=== PATIENT | male | born 1980 | race African-American/Black ===

== ENCOUNTER 2017-06-01 15:52 | Emergency (ER) | payer MEDICAID ==
[~2017-06-01] VITALS: Ht 167.6 cm; Wt 78.5 kg
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
--- NOTE | 2017-06-01 17:00 | NUR ---
IN AND OUT CATHER PERFORMED USING STERILE TECHNIQUE, 100CC YELLOW CLEAR URINE COLLECTED AND SENT TO LAB.
[2017-06-01 17:52] LABS: BASOPHILS % (AUTO) 0.3 % (0.0-2.0); EOSINOPHILS # (AUTO) 0.1 /CMM (0.0-0.7); EOSINOPHILS % (AUTO) 0.7 % (0.0-6.0); HEMATOCRIT 40 % (39-51); HEMOGLOBIN 13.1 g/dL (13.5-17.5); LYMPHOCYTES # (AUTO) 1.3 /CMM (0.8-4.8); LYMPHOCYTES % (AUTO) 17.3 % (20.0-44.0); MEAN CORPUSCULAR HEMOGLOBIN 29 PG (26.0-33.0); MEAN CORPUSCULAR HGB CONC 33 g/dl (31.0-36.0); MEAN CORPUSCULAR VOLUME 86 fL (80-96); MONOCYTES # (AUTO) 0.6 /CMM (0.1-1.30); MONOCYTES % (AUTO) 8.3 % (2.0-12.0); NEUTROPHILS # (AUTO) 5.6 /CMM (1.8-8.9); NEUTROPHILS % (AUTO) 73.4 % (43.0-81.0); PLATELET COUNT (AUTO) 233 /CMM (150-450); RED BLOOD CELL COUNT(AUTO) 4.57 MIL/uL (4.5-6.0); WHITE BLOOD COUNT (AUTO) 7.6 K/uL (4.3-11.0)
[2017-06-01] MEDS ORDERED: OLANZAPINE 10 MG VIAL IM ONE ×2 (18:00→18:23)
[2017-06-01 18:08] LABS: CARBON DIOXIDE 25 mmol/L (21-32); CHLORIDE 101 mmol/L (98-107); CREATININE 1.2 mg/dL (0.6-1.3); GLUCOSE 98 mg/dL (74-106); POTASSIUM 3.9 mmol/L (3.5-5.1); SODIUM SERUM 136 mmol/L (136-145); UREA NITROGEN, BLOOD 27 mg/dL (7-18)
[2017-06-01 18:13] LABS: ALANINE AMINOTRANSFERASE 54 U/L (12-78); ALBUMIN 3.8 g/dL (3.4-5.0); ALKALINE PHOSPHATASE 75 U/L (46-116); ASPARTATE AMINOTRANSFERASE 124 U/L (15-37); BILIRUBIN,DIRECT 0.2 mg/dL (0.0-0.2); BILIRUBIN,TOTAL 1.2 mg/dL (0.2-1.0); TOTAL PROTEIN, SERUM 7.7 g/dL (6.4-8.2)
[2017-06-01 18:15] LABS: ACETAMINOPHEN 0 ug/ml (10-30); ALCOHOL, BLOOD < 3 mg/dL (0-0); SALICYLATE < 0.2 mg/dL (2.8-20.0)
--- NOTE | 2017-06-01 18:23 | NUR ---
PT IS HITTING BED RAIL AND WALL AND APPEARS PIALR ANGRY. PT CONTINUES TO REFUSE QUESTIONS. PT MEDICATED ORDERED PER DR. GARDINER
--- NOTE | 2017-06-01 19:30 | NUR ---
PT RESTING COMFORTABLY. RESTRAINTS REMOVED. PULSE WNL, ABLE TO FEEL SENSATIONS
[2017-06-01 20:53] LABS: APPEARANCE,URINE Clear (CLEAR); BILIRUBIN,URINE SMALL (NEGATIVE); BLOOD, URINE Trace-intact Ery/uL (NEGATIVE); COLOR,URINE Yellow (YELLOW); KETONES,URINE 40 (NEGATIVE); LEUKOCYTE ESTERASE ,URINE Negative (NEGATIVE); NITRITE, URINE Negative (NEGATIVE); PH,URINE 5.5 (5.0-8.0); PROTEIN,URINE 30 mg/dl (NEGATIVE); UGLUCOSE Negative (NEGATIVE); UROBILINOGEN,URINE 0.2 EU/dL (0.2)
[2017-06-01 21:07] LABS: BACTERIA,URINE Few /HPF (None Seen); HYALINE CASTS, URINE Rare /LPF (None Seen); MUCUS,URINE Moderate /LPF (None Seen); SQUAMOUS EPITHELIAL CELL,UR Few /HPF (None Seen); URINE AMORPHOUS URATE Few /HPF (None Seen); WBC,URINE 0-2 /HPF (0-3)
--- NOTE | 2017-06-01 21:11 | NUR ---
Patient is resting comfortably in bed with eyes closed. Easily aroused. VSS
--- NOTE | 2017-06-01 23:17 | NUR ---
Patient is resting comfortably in bed with eyes closed. Easily aroused. VSS
--- NOTE | 2017-06-02 00:12 | NUR ---
CALLED [facility] FOR EVAL. MAN
--- NOTE | 2017-06-02 00:30 | NUR ---
PT HAS UNSTEADY GAIT. PLACED MEDICAL RESTRAINTS TO PREVENT FALL. WILL CONTINUE TO MONITOR NEEDS FOR RESTRAINTS
--- NOTE | 2017-06-02 00:59 | NUR ---
ART AT BEDSIDE
--- NOTE | 2017-06-02 01:01 | NUR ---
ART LEFT. "I CANT EVALUATE HIM BECAUSE HE IS TOO OUT OF IT". WILL F/U
--- NOTE | 2017-06-02 01:15 | NUR ---
RESTRAINTS REMOVED. PT AMBULATED TO BED 07 TO BE CLOSER TO NURSING STATION FOR EVAL
--- NOTE | 2017-06-02 01:45 | NUR ---
WILL DO RE-EVAL APPROX BEFORE 0800
--- NOTE | 2017-06-02 03:46 | NUR ---
Patient is resting comfortably in bed with eyes closed snoring. Easily aroused. VSS NAD
[2017-06-02] MEDS ORDERED: OLANZAPINE 10 MG VIAL IM ONE (10:07)
--- NOTE | 2017-06-02 11:14 | NUR ---
PT EASILY AROUSED RESP EVEN UNLABORED VSS
--- NOTE | 2017-06-02 13:40 | NUR ---
PT OK DOENT WANT TO HURT HIMSELF VSS Patient discharged to home in stable condition. Written and verbal after care instructions given. Patient verbalizes understanding of instruction.
[2017-06-02 13:42] VITALS: BP 124/59
== END 2017-06-02 13:44 | disposition home or self-care (01) ==
LOC: ER 15:55
DX: F29 Unspecified psychosis not due to a substance or known physiological condition (principal); F15.10 Other stimulant abuse, uncomplicated; R46.89 Other symptoms and signs involving appearance and behavior
CPT/HCPCS: 36415; 80048; 80076; 80305; 80329; 81001; 85025; 96372; 99291; A4606; G0480 ×2; J3490 ×2; Z7610; 81000-TC